=== PATIENT | male | born 1995 | race Caucasian/White ===

== ENCOUNTER 2023-12-19 12:28 | Emergency (ER) | payer MEDICAID ==
[~2023-12-19] VITALS: Ht 182.9 cm; Wt 102.1 kg
[2023-12-19 13:00] VITALS: BP 130/91; PULSE 97; RESP 18; TEMP 98; O2SAT 97
[2023-12-19 14:00] VITALS: BP 130/91; PULSE 97; RESP 18; TEMP 98; O2SAT 97
== END 2023-12-19 14:00 | disposition home or self-care (01) ==
LOC: MED 12:28
DX: K62.5 Hemorrhage of anus and rectum (principal); E11.9 Type 2 diabetes mellitus without complications
CPT/HCPCS: 99282